=== PATIENT | female | born 1965 | race Asian ===

== ENCOUNTER 2021-11-22 13:28 | Emergency (ER) | payer OTHER ==
[~2021-11-22] VITALS: Ht 165.1 cm; Wt 67.1 kg
[2021-11-22 14:01] LABS: HEMATOCRIT 37.7 % (31.2-41.9); MEAN CORPUSCULAR HEMOGLOBIN 28.6 uug (24.7-32.8); MEAN CORPUSCULAR VOLUME 85.1 fL (75.5-95.3); PLATELET COUNT (AUTO) 203 K/uL (179-408)
[2021-11-22 14:06] LABS: CARBON DIOXIDE 28 mmol/L (21-32); CHLORIDE 98 mmol/L (98-107); CREATININE 0.9 mg/dL (0.6-1.3); GLUCOSE 146 mg/dL (74-106); POTASSIUM 4.1 mmol/L (3.5-5.1); UREA NITROGEN, BLOOD 17 mg/dL (7-18)
[2021-11-22 14:14] LABS: ALANINE AMINOTRANSFERASE 31 U/L (14-59); ALKALINE PHOSPHATASE 86 U/L (50-136); ASPARTATE AMINOTRANSFERASE 14 U/L (15-37); BILIRUBIN,DIRECT 0.1 mg/dL (0.0-0.2); BILIRUBIN,TOTAL 0.7 mg/dL (0.2-1.0); TOTAL PROTEIN, SERUM 7.7 g/dL (6.4-8.2)
[2021-11-22] MEDS ORDERED: IOHEXOL 350 100 ML INFUS..BTL ONE (14:34)
[2021-11-22] MEDS ORDERED: IV NORMAL SALINE 250 ML IV ONE (14:34)
[2021-11-22] MEDS ORDERED: SWABABLE VALVE TRANSFER SET EA MC ONE (14:34)
[2021-11-22] MEDS ORDERED: KETOROLAC TROMETHAMINE 15 MG INJ ONE (16:12)
[2021-11-22] MEDS ORDERED: KETOROLAC TROMETHAMINE 15 MG INJ IVP ONE (16:15)
[2021-11-22] MEDS ORDERED: IBUP-1953 PO (17:30)
--- NOTE | 2021-11-22 17:30 | NUR ---
CP remains, but bilateral shoulder pain cleared up. Removed IV intact, site okay, bandaged. MD explained risks, but Pt signed out AMA.
== END 2021-11-22 17:50 | disposition left against medical advice (07) ==
LOC: ER 13:28
DX: I31.9 Disease of pericardium, unspecified (principal); I31.3 Pericardial effusion (noninflammatory); R79.1 Abnormal coagulation profile; D72.829 Elevated white blood cell count, unspecified
CPT/HCPCS: 36415; 71045; 71275; 80048; 80076; 84484 ×2; 85025; 85379; 93005; 96374; 99285; J1885; Q9967; A4663; J7030; J7050

== ENCOUNTER 2021-11-23 14:00 | Emergency (ER) | payer OTHER ==
[~2021-11-23] VITALS: Ht 165.1 cm; Wt 67.1 kg
[~2021-11-23 14:00] MED LIST: IBUP-1953 PO
--- NOTE | 2021-11-23 14:38 | NUR ---
PT IS IN ROOM #2B. DR OSMAN EVALUATED THE PT.
[2021-11-23] MEDS ORDERED: HYDROMORPHONE 1 MG/1 ML DISP.SYRIN ONE (14:42)
[2021-11-23] MEDS ORDERED: ONDANSETRON 4 MG/2 ML VIAL ONE (14:42)
[2021-11-23] MEDS ORDERED: HYDROMORPHONE 1 MG/1 ML DISP.SYRIN IV ONE (14:45)
[2021-11-23] MEDS ORDERED: ONDANSETRON 4 MG/2 ML VIAL IV ONE (14:45)
[2021-11-23 15:28] LABS: HEMATOCRIT 37.3 % (31.2-41.9); MEAN CORPUSCULAR HEMOGLOBIN 28.4 uug (24.7-32.8); PLATELET COUNT (AUTO) 181 K/uL (179-408)
[2021-11-23 15:39] LABS: POTASSIUM 3.7 mmol/L (3.5-5.1)
[2021-11-23 15:57] LABS: BILIRUBIN,DIRECT 0.2 mg/dL (0.0-0.2); BILIRUBIN,TOTAL 0.8 mg/dL (0.2-1.0); TOTAL PROTEIN, SERUM 7.7 g/dL (6.4-8.2)
[2021-11-23] MEDS ORDERED: ASPIRIN 325 MG TABLET PO ONE (16:45)
[2021-11-23] MEDS ORDERED: ASPIRIN 325 MG TABLET ONE (16:50)
--- NOTE | 2021-11-23 19:02 | NUR ---
RECEIVED REPORT FROM JADYN BENITEZ. PT NOTED TO BE IN BED, NO SOB OR LABORED BREATHING, AWAKE A/O X3, DENIES ANY PAIN/DISCOMFORT AT THIS TIME.
--- NOTE | 2021-11-23 19:57 | NUR ---
[facility], PT ACCEPTED TO: [facility] DR. WHITAKER REPORT # [facility] ETA [id number]
--- NOTE | 2021-11-23 21:26 | NUR ---
GAVE REPORT TO [place] BANSAL NURSE.
--- NOTE | 2021-11-23 21:29 | NUR ---
[facility] AT BEDSIDE FOR TRANSPORT.
--- NOTE | 2021-11-23 21:29 | NUR ---
Patient Tranfers to outside Facility Physician: SHERMAN Location: [facility] ROOM 5108 BED B PT IN STABLE CONDITION, DENIES ANY PAIN/DISCOMFORT UPON DISCHARGE. VSS. NO CHANGES IN LOC.
== END 2021-11-23 21:31 | disposition short-term general hospital (02) ==
LOC: ER 14:00
DX: R07.9 Chest pain, unspecified (principal); E11.9 Type 2 diabetes mellitus without complications
CPT/HCPCS: 36415; 71045; 80048; 80076; 83880; 84484 ×2; 85025; 85379; 85730; 87426; 93005; 96374; 96375; 99285; J1170; J2405; A4663; J7030